=== PATIENT | female | born 1955 | race Caucasian/White ===

== ENCOUNTER 2017-07-24 09:05 | Day surgery (SDC) | payer OTHER ==
[~2017-07-24] VITALS: Ht 147.3 cm; Wt 104.7 kg
[~2017-07-24 09:05] MED LIST: ALBU90OI; ASPI81CH PO; BUTALB-ACETAMI1 EAC2 PO; CYCL10 PO; FURO20 PO; GABA300 PO; GEMF600 PO; METF500 PO; METO25ER PO; NAPR500 PO; Norco 5-325 Ta1 EACH PO; POTA10T PO; Prednisone20 MG PO; Prilosec Otc20 MG; THEO200ERC PO; Ventolin5 MG/1 ML
== END 2017-07-24 11:24 | disposition home or self-care (01) ==
LOC: ORSCSDS 09:05
PROVIDERS: Internal Medicine Gastroenterology
PROC: 0DJD8ZZ Inspection of Lower Intestinal Tract, Via Natural or Artificial Opening Endoscopic (ICD-10-PCS; principal; 2017-07-24 10:30)
PROC: 0DB88ZX Excision of Small Intestine, Via Natural or Artificial Opening Endoscopic, Diagnostic (ICD-10-PCS; principal; 2017-07-24 10:30)
PROC: 0D758ZZ Dilation of Esophagus, Via Natural or Artificial Opening Endoscopic (ICD-10-PCS; principal; 2017-07-24 10:30)
PROC: 0DB58ZX Excision of Esophagus, Via Natural or Artificial Opening Endoscopic, Diagnostic (ICD-10-PCS; principal; 2017-07-24 10:30)
DX: D50.9 Iron deficiency anemia, unspecified (principal); K21.9 Gastro-esophageal reflux disease without esophagitis; R13.14 Dysphagia, pharyngoesophageal phase; K22.2 Esophageal obstruction; K44.9 Diaphragmatic hernia without obstruction or gangrene; K57.30 Diverticulosis of large intestine without perforation or abscess without bleeding; K64.8 Other hemorrhoids; E11.9 Type 2 diabetes mellitus without complications; J45.909 Unspecified asthma, uncomplicated; Z79.899 Other long term (current) drug therapy; Z79.82 Long term (current) use of aspirin; E66.01 Morbid (severe) obesity due to excess calories; Z68.42 Body mass index [BMI] 45.0-49.9, adult
CPT/HCPCS: 82947; 88305; J7120

== ENCOUNTER 2017-09-25 13:34 | Emergency (ER) | payer OTHER ==
[~2017-09-25] VITALS: Ht 147.3 cm; Wt 102.1 kg
[2017-09-25] MEDS ORDERED: THEO300ERC PO (13:56)
[2017-09-25] MEDS ORDERED: ALBU90OI6 INH (14:10)
[2017-09-25] MEDS ORDERED: OMEPRAZOLE MAGN20 MG PO (14:13)
[2017-09-25] MEDS ORDERED: METO25 PO (14:14)
[2017-09-25] MEDS ORDERED: Klor-Con M1515 MEQ PO (14:16)
[2017-09-25] MEDS ORDERED: Cheratussin AC118 ML PO (14:30)
[2017-09-25] MEDS ORDERED: AZIT250 PO (14:30)
[2017-09-25] MEDS ORDERED: Prednisone20 MG PO (14:30)
== END 2017-09-25 14:37 | disposition home or self-care (01) ==
LOC: ER 13:34
DX: J45.909 Unspecified asthma, uncomplicated (principal); Z88.0 Allergy status to penicillin; Z91.041 Radiographic dye allergy status; Z88.1 Allergy status to other antibiotic agents; Z91.09 Other allergy status, other than to drugs and biological substances; Z88.8 Allergy status to other drugs, medicaments and biological substances; Z79.51 Long term (current) use of inhaled steroids; Z79.82 Long term (current) use of aspirin; Z79.899 Other long term (current) drug therapy
CPT/HCPCS: 71046; 94640; 99284

== ENCOUNTER 2017-09-29 15:03 | Inpatient (IN) | payer OTHER ==
[~2017-09-29] VITALS: Ht 147.3 cm; Wt 103.9 kg
[~2017-09-29 15:03] MED LIST changes: +ALBU90OI6 INH; +AZIT250 PO; +Cheratussin AC118 ML PO; +Klor-Con M1515 MEQ PO; +METO25 PO; +OMEPRAZOLE MAGN20 MG PO; +THEO300ERC PO
[2017-09-29 16:07] LABS: Alanine Aminotransfer (ALT/SGP 41 U/L (12-78); Albumin/Globulin Ratio 1.1 (0.8-1.8); Alk Phos 144 U/L (50-136); Anion Gap 10 mmol/L (6-16); Aspartate Aminotrans (AST/SGOT 19 U/L (12-37); Bilirubin, Total 0.5 mg/dL (0.1-1.0); Blood Urea Nitrogen 17 mg/dL (8-24); Bun/Creatinine Ratio 24.1 (12.0-20.0); CO2, Blood 24 mmol/L (21-32); Calcium, Blood 8.6 mg/dL (8.5-10.1); Chloride, Blood 103 mmol/L (98-108); Creatinine, Blood 0.71 mg/dL (0.40-1.00); Globulin, Blood 3.7 g/dL (2.2-4.0); Glomerular Filtration Rate >60 (60-); Glucose, Blood 201 mg/dL (70-99); Potassium, Blood 4.2 mmol/L (3.5-5.5); Sodium, Blood 137 mmol/L (136-145); Total Protein, Blood 7.7 g/dL (6.4-8.2); Troponin I <0.015 ng/mL (0.000-0.040)
[2017-09-29 16:48] LABS: BASOPHILS ABSOLUTE AUTO 0.01 K/mm3 (0.00-0.23); BASOPHILS PERCENT AUTO 0 % (0-2); EOSINOPHILS PERCENT AUTO 0 % (0-6); Hematocrit 40.6 % (33.0-51.0); Hemoglobin 13.2 g/dL (11.5-16.0); IMMATURE GRAN ABSOLUTE AUTO 0.11 K/mm3 (0.00-0.10); IMMATURE GRAN PERCENT AUTO 2 % (0-1); LYMPHOCYTES ABSOLUTE AUTO 0.52 K/mm3 (0.84-5.20); LYMPHOCYTES PERCENT AUTO 9 % (21-46); MONOCYTES ABSOLUTE AUTO 0.15 K/mm3 (0.16-1.47); MONOCYTES PERCENT AUTO 3 % (4-13); Mean Corpuscular HGB 29.4 pg (26.0-34.0); Mean Corpuscular HGB Conc 32.5 g/dL (31.5-36.5); Mean Corpuscular Volume 90 fL (80-100); Mean Platelet Volume 9.7 fL (9.1-12.4); NEUTROPHILS ABSOLUTE AUTO 5.24 K/mm3 (1.96-9.15); NEUTROPHILS PERCENT AUTO 87 % (41-73); Platelet Count 343 K/mm3 (150-400); RDW Coefficient Variation 13.2 % (11.7-14.2); RDW Standard Deviation 43.8 fL (35.1-46.3); Red Blood Cell Count 4.49 M/mm3 (3.80-5.20); White Blood Cell Count 6.03 K/mm3 (4.00-11.30)
[2017-10-01 05:02] LABS: BASOPHILS ABSOLUTE AUTO 0.03 K/mm3 (0.00-0.23); BASOPHILS PERCENT AUTO 0 % (0-2); EOSINOPHILS PERCENT AUTO 0 % (0-6); Hematocrit 39.9 % (33.0-51.0); Hemoglobin 12.9 g/dL (11.5-16.0); IMMATURE GRAN ABSOLUTE AUTO 0.33 K/mm3 (0.00-0.10); IMMATURE GRAN PERCENT AUTO 3 % (0-1); LYMPHOCYTES ABSOLUTE AUTO 1.21 K/mm3 (0.84-5.20); LYMPHOCYTES PERCENT AUTO 11 % (21-46); MONOCYTES ABSOLUTE AUTO 0.44 K/mm3 (0.16-1.47); MONOCYTES PERCENT AUTO 4 % (4-13); Mean Corpuscular HGB 29.2 pg (26.0-34.0); Mean Corpuscular HGB Conc 32.3 g/dL (31.5-36.5); Mean Corpuscular Volume 90 fL (80-100); Mean Platelet Volume 9.5 fL (9.1-12.4); NEUTROPHILS ABSOLUTE AUTO 9.19 K/mm3 (1.96-9.15); NEUTROPHILS PERCENT AUTO 82 % (41-73); Platelet Count 380 K/mm3 (150-400); RDW Coefficient Variation 13.3 % (11.7-14.2); RDW Standard Deviation 43.9 fL (35.1-46.3); Red Blood Cell Count 4.42 M/mm3 (3.80-5.20)
[2017-10-01 05:29] LABS: Alanine Aminotransfer (ALT/SGP 32 U/L (12-78); Albumin, Blood 3.8 g/dL (3.4-5.0); Albumin/Globulin Ratio 1.1 (0.8-1.8); Alk Phos 125 U/L (50-136); Anion Gap 10 mmol/L (6-16); Aspartate Aminotrans (AST/SGOT 12 U/L (12-37); Bilirubin, Total 0.4 mg/dL (0.1-1.0); Blood Urea Nitrogen 25 mg/dL (8-24); Bun/Creatinine Ratio 40.5 (12.0-20.0); CO2, Blood 26 mmol/L (21-32); Calcium, Blood 9.3 mg/dL (8.5-10.1); Chloride, Blood 101 mmol/L (98-108); Creatinine, Blood 0.62 mg/dL (0.40-1.00); Globulin, Blood 3.5 g/dL (2.2-4.0); Glomerular Filtration Rate >60 (60-); Glucose, Blood 180 mg/dL (70-99); Potassium, Blood 4.8 mmol/L (3.5-5.5); Sodium, Blood 137 mmol/L (136-145); Total Protein, Blood 7.3 g/dL (6.4-8.2)
[2017-10-01] MEDS ORDERED: AZIT250 PO (10:57)
[2017-10-01] MEDS ORDERED: Q-Tussin100 MG/5 M PO (10:59)
[2017-10-01] MEDS ORDERED: PRED20 PO (11:04)
[2017-10-01] MEDS ORDERED: LEVFLO500 PO (11:05)
== END 2017-10-01 11:45 | disposition home or self-care (01) | DRG 194 ==
LOC: ER 15:03 → MEDS 15:04 → ER 20:08 → MEDS 21:10 → ENPENDDIS 10-01 10:25 → MEDS 10-01 11:45
PROVIDERS: Emergency Medicine; Internal Medicine
DX: J18.9 Pneumonia, unspecified organism (principal); J45.901 Unspecified asthma with (acute) exacerbation; E11.42 Type 2 diabetes mellitus with diabetic polyneuropathy; I10 Essential (primary) hypertension; E78.5 Hyperlipidemia, unspecified; G89.4 Chronic pain syndrome; Z88.1 Allergy status to other antibiotic agents; Z88.0 Allergy status to penicillin; Z88.8 Allergy status to other drugs, medicaments and biological substances; Z79.84 Long term (current) use of oral hypoglycemic drugs; Z79.82 Long term (current) use of aspirin; Z79.899 Other long term (current) drug therapy
CPT/HCPCS: 36415; 71046; 80053; 82947; 83036; 83605; 84484; 85025; 87040; 93005; 93010; 94640; 94760; 96372; 96374; 96375; 96376; 99285; G0378; J0696; J1650; J1956; J2930

== ENCOUNTER 2017-12-16 07:56 | Day surgery (SDC) | payer OTHER ==
[~2017-12-16] VITALS: Ht 147.3 cm; Wt 102.6 kg
[~2017-12-16 07:56] MED LIST changes: +LEVFLO500 PO; +PRED20 PO; +Q-Tussin100 MG/5 M PO
== END 2017-12-16 10:13 | disposition home or self-care (01) ==
LOC: ORSCSDS 07:56
PROVIDERS: Internal Medicine Gastroenterology
PROC: 0DBK8ZX Excision of Ascending Colon, Via Natural or Artificial Opening Endoscopic, Diagnostic (ICD-10-PCS; principal; 2017-12-16 09:15)
PROC: 0DBH8ZX Excision of Cecum, Via Natural or Artificial Opening Endoscopic, Diagnostic (ICD-10-PCS; principal; 2017-12-16 09:15)
DX: D50.9 Iron deficiency anemia, unspecified (principal); D12.0 Benign neoplasm of cecum; D12.2 Benign neoplasm of ascending colon; K64.8 Other hemorrhoids; H40.9 Unspecified glaucoma; K21.9 Gastro-esophageal reflux disease without esophagitis; K57.30 Diverticulosis of large intestine without perforation or abscess without bleeding; E11.9 Type 2 diabetes mellitus without complications; E78.5 Hyperlipidemia, unspecified; J45.909 Unspecified asthma, uncomplicated; I10 Essential (primary) hypertension; Z79.82 Long term (current) use of aspirin; Z79.899 Other long term (current) drug therapy
CPT/HCPCS: 82947; J7120

== ENCOUNTER → 2017-12-31 | Outpatient (CLI) | payer OTHER | LOC: LAB SHORT 09:00 → LAB 09:00 | DX: E11.9 Type 2 diabetes mellitus without complications (principal) | CPT/HCPCS: 82043 ==

== ENCOUNTER 2018-01-06 12:20 | Emergency (ER) | payer OTHER ==
[~2018-01-06] VITALS: Ht 149.9 cm; Wt 103.0 kg
[2018-01-06] MEDS ORDERED: TOPI25 PO (13:25)
[2018-01-06 13:32] LABS: BASOPHILS ABSOLUTE AUTO 0.07 K/mm3 (0.00-0.23); BASOPHILS PERCENT AUTO 1 % (0-2); EOSINOPHILS ABSOLUTE AUTO 0.17 K/mm3 (0.00-0.68); EOSINOPHILS PERCENT AUTO 1 % (0-6); Hematocrit 43.2 % (33.0-51.0); Hemoglobin 14.2 g/dL (11.5-16.0); IMMATURE GRAN ABSOLUTE AUTO 0.12 K/mm3 (0.00-0.10); IMMATURE GRAN PERCENT AUTO 1 % (0-1); LYMPHOCYTES ABSOLUTE AUTO 3.02 K/mm3 (0.84-5.20); LYMPHOCYTES PERCENT AUTO 23 % (21-46); MONOCYTES PERCENT AUTO 5 % (4-13); Mean Corpuscular HGB 30.1 pg (26.0-34.0); Mean Corpuscular HGB Conc 32.9 g/dL (31.5-36.5); Mean Corpuscular Volume 92 fL (80-100); Mean Platelet Volume 9.6 fL (9.1-12.4); NEUTROPHILS ABSOLUTE AUTO 8.95 K/mm3 (1.96-9.15); NEUTROPHILS PERCENT AUTO 69 % (41-73); Platelet Count 456 K/mm3 (150-400); RDW Coefficient Variation 12.9 % (11.7-14.2); RDW Standard Deviation 43.6 fL (35.1-46.3); Red Blood Cell Count 4.72 M/mm3 (3.80-5.20); White Blood Cell Count 13.03 K/mm3 (4.00-11.30)
[2018-01-06 13:53] LABS: Alanine Aminotransfer (ALT/SGP 33 U/L (12-78); Albumin, Blood 4.1 g/dL (3.4-5.0); Alk Phos 137 U/L (50-136); Anion Gap 13 mmol/L (6-16); Aspartate Aminotrans (AST/SGOT 22 U/L (12-37); Bilirubin, Total 0.3 mg/dL (0.1-1.0); Blood Urea Nitrogen 16 mg/dL (8-24); Bun/Creatinine Ratio 25.8 (12.0-20.0); CO2, Blood 23 mmol/L (21-32); Chloride, Blood 105 mmol/L (98-108); Creatinine, Blood 0.62 mg/dL (0.40-1.00); Glomerular Filtration Rate >60 (60-); Glucose, Blood 76 mg/dL (70-99); Potassium, Blood 3.8 mmol/L (3.5-5.5); Sodium, Blood 141 mmol/L (136-145); Total Protein, Blood 8.1 g/dL (6.4-8.2); Troponin I <0.015 ng/mL (0.000-0.040)
[2018-01-06] MEDS ORDERED: Medi-Meclizine25 MG PO (14:00)
== END 2018-01-06 14:09 | disposition home or self-care (01) ==
LOC: ER 12:20
PROVIDERS: Emergency Medicine
DX: R42 Dizziness and giddiness (principal); J45.909 Unspecified asthma, uncomplicated; Z88.0 Allergy status to penicillin; Z88.8 Allergy status to other drugs, medicaments and biological substances; Z91.041 Radiographic dye allergy status; Z91.030 Bee allergy status; Z88.1 Allergy status to other antibiotic agents; Z79.84 Long term (current) use of oral hypoglycemic drugs; Z79.899 Other long term (current) drug therapy; Z79.82 Long term (current) use of aspirin
CPT/HCPCS: 36415; 80053; 81000; 84484; 85025; 93005; 93010; 96360; 99284; J7030

== ENCOUNTER 2018-08-24 14:05 | Emergency (ER) | payer OTHER ==
[~2018-08-24] VITALS: Ht 149.9 cm; Wt 104.3 kg
[~2018-08-24 14:05] MED LIST changes: +Medi-Meclizine25 MG PO; +TOPI25 PO
== END 2018-08-24 16:35 | disposition home or self-care (01) ==
LOC: ER 14:05
DX: G43.909 Migraine, unspecified, not intractable, without status migrainosus (principal); J45.909 Unspecified asthma, uncomplicated; Z79.899 Other long term (current) drug therapy; Z79.82 Long term (current) use of aspirin; Z79.84 Long term (current) use of oral hypoglycemic drugs; Z91.041 Radiographic dye allergy status; Z91.030 Bee allergy status; Z88.0 Allergy status to penicillin; Z91.048 Other nonmedicinal substance allergy status; Z88.1 Allergy status to other antibiotic agents
CPT/HCPCS: 96361; 96374; 96375; 99283-25; J0780; J1200; J1885; J7030

== ENCOUNTER → 2018-12-23 | Outpatient (CLI) | payer OTHER | END | disposition home or self-care (01) | LOC: LAB 12:15 → LAB SHORT 12:15 | DX: L72.9 Follicular cyst of the skin and subcutaneous tissue, unspecified (principal) | CPT/HCPCS: 87070; 87075; 87205 ==

== ENCOUNTER → 2020-05-09 | Outpatient (CLI) | payer OTHER ==
[~2020-05-09] MED LIST changes: +AIMOVIG AU140 MG/1 M PO; +AIMOVIG AU70 MG/1 ML SC; +Aspirin EC81 MG PO; +BUTALB-ACETAMI1 EAC5 PO; +FUROSEMIDE40 MG PO; +LIDO700A20 TOP; +METOPROLOL TART25 MG PO; +NAPROXEN500 MG PO; +NEURONTIN300 MG PO; +OMEP20ER PO; +OXYCODONE-ACET1 EAC3 PO; +PROM25 PO; +Percocet 5-3251 EACH PO; +RIZATRIPTAN10 M3 PO; +RIZATRIPTAN10 MG SL; +ROSU10TA PO; +ROSUVASTATIN CA10 MG PO; +THEO300ERA PO; +TOPI50 PO; +TROKENDI XR50 MG PO; +XARELTO10 MG PO
[2020-05-09 16:05] LABS: BASOPHILS ABSOLUTE AUTO 0.09 K/mm3 (0.00-0.23); BASOPHILS PERCENT AUTO 1 % (0-2); EOSINOPHILS ABSOLUTE AUTO 0.38 K/mm3 (0.00-0.68); EOSINOPHILS PERCENT AUTO 3 % (0-6); Hemoglobin 13.2 g/dL (11.5-16.0); IMMATURE GRAN ABSOLUTE AUTO 0.02 K/mm3 (0.00-0.10); IMMATURE GRAN PERCENT AUTO 0 % (0-1); LYMPHOCYTES ABSOLUTE AUTO 3.35 K/mm3 (0.84-5.20); LYMPHOCYTES PERCENT AUTO 29 % (21-46); MONOCYTES PERCENT AUTO 5 % (4-13); Mean Corpuscular HGB 30.2 pg (26.0-34.0); Mean Corpuscular Volume 92 fL (80-100); Mean Platelet Volume 10.5 fL (9.1-12.4); NEUTROPHILS ABSOLUTE AUTO 6.98 K/mm3 (1.96-9.15); NEUTROPHILS PERCENT AUTO 61 % (41-73); Platelet Count 282 K/mm3 (150-400); RDW Coefficient Variation 12.9 % (11.7-14.2); RDW Standard Deviation 42.7 fL (35.1-46.3); Red Blood Cell Count 4.37 M/mm3 (3.80-5.20); White Blood Cell Count 11.42 K/mm3 (4.00-11.30)
[2020-05-09 16:13] LABS: Alanine Aminotransfer (ALT/SGP 52 U/L (12-78); Albumin, Blood 3.9 g/dL (3.4-5.0); Alk Phos 174 U/L (40-126); Anion Gap 8 mmol/L (6-16); Aspartate Aminotrans (AST/SGOT 30 U/L (12-37); Bilirubin, Total 0.2 mg/dL (0.1-1.0); Blood Urea Nitrogen 20 mg/dL (8-24); Bun/Creatinine Ratio 28.6 (12.0-20.0); CO2, Blood 30 mmol/L (21-32); Calcium, Blood 9.5 mg/dL (8.5-10.1); Chloride, Blood 103 mmol/L (98-108); Globulin, Blood 3.8 g/dL (2.2-4.0); Glomerular Filtration Rate >60 (60-); Glucose, Blood 136 mg/dL (70-99); Potassium, Blood 3.6 mmol/L (3.5-5.5); Sodium, Blood 141 mmol/L (136-145); Total Protein, Blood 7.7 g/dL (6.4-8.2)
[2020-05-09 16:14] LABS: Troponin I <0.017 ng/mL (0.000-0.040)
== END | disposition home or self-care (01) ==
LOC: LAB SHORT 15:51 → LAB EV 15:51
PROVIDERS: Physician Assistant
DX: R07.9 Chest pain, unspecified (principal)
CPT/HCPCS: 80053; 83690; 84484; 85025; 85379

== ENCOUNTER 2020-05-16 16:51 | Emergency (ER) | payer OTHER ==
[~2020-05-16] VITALS: Ht 149.9 cm; Wt 98.0 kg
[~2020-05-16 16:51] MED LIST changes: -AIMOVIG AU140 MG/1 M PO; -BUTALB-ACETAMI1 EAC5 PO; -FUROSEMIDE40 MG PO; -METOPROLOL TART25 MG PO; -NAPROXEN500 MG PO; -NEURONTIN300 MG PO; -OMEP20ER PO; -OXYCODONE-ACET1 EAC3 PO; -RIZATRIPTAN10 M3 PO; -ROSUVASTATIN CA10 MG PO; -TOPI50 PO
[2020-05-16] MEDS ORDERED: NEURONTIN300 MG PO ×2 (16:56→17:01)
[2020-05-16] MEDS ORDERED: OXYCODONE-ACET1 EAC3 PO (16:56)
[2020-05-16] MEDS ORDERED: AIMOVIG AU140 MG/1 M PO (16:57)
[2020-05-16] MEDS ORDERED: METOPROLOL TART25 MG PO (16:57)
[2020-05-16] MEDS ORDERED: ROSUVASTATIN CA10 MG PO (16:58)
[2020-05-16] MEDS ORDERED: TOPI50 PO (16:58)
[2020-05-16] MEDS ORDERED: OMEP20ER PO (16:58)
[2020-05-16] MEDS ORDERED: FUROSEMIDE40 MG PO (16:58)
[2020-05-16] MEDS ORDERED: NAPROXEN500 MG PO (16:59)
[2020-05-16] MEDS ORDERED: Klor-Con M1515 MEQ PO (17:01)
[2020-05-16] MEDS ORDERED: CYCL10 PO (17:03)
[2020-05-16] MEDS ORDERED: BUTALB-ACETAMI1 EAC5 PO (17:03)
[2020-05-16] MEDS ORDERED: RIZATRIPTAN10 M3 PO (17:04)
[2020-05-16 18:15] LABS: BASOPHILS ABSOLUTE AUTO 0.07 K/mm3 (0.00-0.23); BASOPHILS PERCENT AUTO 1 % (0-2); EOSINOPHILS ABSOLUTE AUTO 0.32 K/mm3 (0.00-0.68); EOSINOPHILS PERCENT AUTO 3 % (0-6); Hematocrit 40.7 % (33.0-51.0); Hemoglobin 13.1 g/dL (11.5-16.0); IMMATURE GRAN ABSOLUTE AUTO 0.05 K/mm3 (0.00-0.10); IMMATURE GRAN PERCENT AUTO 1 % (0-1); LYMPHOCYTES ABSOLUTE AUTO 3.23 K/mm3 (0.84-5.20); LYMPHOCYTES PERCENT AUTO 32 % (21-46); MONOCYTES ABSOLUTE AUTO 0.69 K/mm3 (0.16-1.47); MONOCYTES PERCENT AUTO 7 % (4-13); Mean Corpuscular HGB 30.3 pg (26.0-34.0); Mean Corpuscular HGB Conc 32.2 g/dL (31.5-36.5); Mean Corpuscular Volume 94 fL (80-100); Mean Platelet Volume 10.3 fL (9.1-12.4); NEUTROPHILS ABSOLUTE AUTO 5.77 K/mm3 (1.96-9.15); NEUTROPHILS PERCENT AUTO 57 % (41-73); Platelet Count 285 K/mm3 (150-400); RDW Coefficient Variation 12.8 % (11.7-14.2); RDW Standard Deviation 44.1 fL (35.1-46.3); Red Blood Cell Count 4.33 M/mm3 (3.80-5.20); White Blood Cell Count 10.13 K/mm3 (4.00-11.30)
[2020-05-16 18:29] LABS: Alanine Aminotransfer (ALT/SGP 46 U/L (12-78); Albumin, Blood 3.7 g/dL (3.4-5.0); Albumin/Globulin Ratio 1.1 (0.8-1.8); Alk Phos 170 U/L (50-136); Anion Gap 5 mmol/L (6-16); Aspartate Aminotrans (AST/SGOT 29 U/L (12-37); Bilirubin, Total 0.2 mg/dL (0.1-1.0); Blood Urea Nitrogen 16 mg/dL (8-24); Bun/Creatinine Ratio 20.8 (12.0-20.0); CO2, Blood 28 mmol/L (21-32); Calcium, Blood 9.2 mg/dL (8.5-10.1); Chloride, Blood 111 mmol/L (98-108); Creatinine, Blood 0.77 mg/dL (0.40-1.00); Globulin, Blood 3.4 g/dL (2.2-4.0); Glomerular Filtration Rate >60 (60-); Glucose, Blood 116 mg/dL (70-99); Potassium, Blood 4.1 mmol/L (3.5-5.5); Sodium, Blood 144 mmol/L (136-145); Total Protein, Blood 7.1 g/dL (6.4-8.2); Troponin I <0.015 ng/mL (0.000-0.040)
== END 2020-05-16 19:50 | disposition home or self-care (01) ==
LOC: ER 16:51
PROVIDERS: Emergency Medicine
DX: S29.011A Strain of muscle and tendon of front wall of thorax, initial encounter (principal); R07.89 Other chest pain; J45.909 Unspecified asthma, uncomplicated; Z79.84 Long term (current) use of oral hypoglycemic drugs; Z79.82 Long term (current) use of aspirin; Z79.899 Other long term (current) drug therapy; X50.9XXA Other and unspecified overexertion or strenuous movements or postures, initial encounter; Y93.B9 Activity, other involving muscle strengthening exercises
CPT/HCPCS: 36415; 71045; 80053; 84484; 85025; 93005; 93010; 96374; 99285-25; J3010

== ENCOUNTER 2021-01-23 10:21 | Day surgery (SDC) | payer OTHER ==
[~2021-01-23] VITALS: Ht 149.9 cm; Wt 102.6 kg
[~2021-01-23 10:21] MED LIST changes: +AIMOVIG AU140 MG/1 M PO; +BUTALB-ACETAMI1 EAC5 PO; +FUROSEMIDE40 MG PO; +METOPROLOL TART25 MG PO; +NAPROXEN500 MG PO; +NEURONTIN300 MG PO; +OMEP20ER PO; +OXYCODONE-ACET1 EAC3 PO; +RIZATRIPTAN10 M3 PO; +ROSUVASTATIN CA10 MG PO; +TOPI50 PO
--- NOTE | 2021-01-23 10:58 | NUR ---
01/23/21 Malaika8 Lucero Fortune 1 TRY RIGHT HAND VALVE
== END 2021-01-23 11:49 | disposition home or self-care (01) ==
LOC: ORSCSDS 10:21
PROVIDERS: Internal Medicine Gastroenterology
PROC: 0DB68ZX Excision of Stomach, Via Natural or Artificial Opening Endoscopic, Diagnostic (ICD-10-PCS; principal; 2021-01-23 11:30)
PROC: 0D758ZZ Dilation of Esophagus, Via Natural or Artificial Opening Endoscopic (ICD-10-PCS; principal; 2021-01-23 11:30)
PROC: 0DB58ZX Excision of Esophagus, Via Natural or Artificial Opening Endoscopic, Diagnostic (ICD-10-PCS; principal; 2021-01-23 11:30)
DX: R13.10 Dysphagia, unspecified (principal); K21.9 Gastro-esophageal reflux disease without esophagitis; K22.2 Esophageal obstruction; K44.9 Diaphragmatic hernia without obstruction or gangrene; E11.9 Type 2 diabetes mellitus without complications; E78.5 Hyperlipidemia, unspecified; F32.9 Major depressive disorder, single episode, unspecified; I10 Essential (primary) hypertension; J45.909 Unspecified asthma, uncomplicated; E66.01 Morbid (severe) obesity due to excess calories; Z68.42 Body mass index [BMI] 45.0-49.9, adult; Z79.82 Long term (current) use of aspirin; Z79.84 Long term (current) use of oral hypoglycemic drugs; Z79.899 Other long term (current) drug therapy
CPT/HCPCS: 82947; 88305; 88342; J2704

== ENCOUNTER → 2021-08-07 | Outpatient (CLI) | payer OTHER | END | disposition home or self-care (01) | LOC: LAB SHORT 08:56 | DX: E53.8 Deficiency of other specified B group vitamins (principal) | CPT/HCPCS: 82607; 82746 ==

== ENCOUNTER → 2021-10-15 | Outpatient (CLI) | payer OTHER ==
[2021-10-16 16:10] LABS: HPV 16 Negative (Negative); HPV 18 Negative (Negative); HPV OTHER HR TYPES Negative (Negative)
== END | disposition home or self-care (01) ==
LOC: LAB SHORT 10:05 → LAB 10:05
PROVIDERS: Family Medicine
DX: Z01.419 Encounter for gynecological examination (general) (routine) without abnormal findings (principal)
CPT/HCPCS: 87624; G0123

== ENCOUNTER 2022-03-11 09:58 | Day surgery (SDC) | payer OTHER ==
[~2022-03-11] VITALS: Ht 147.3 cm; Wt 99.5 kg
--- NOTE | 2022-03-11 11:30 | NUR ---
03/11/22 1130 Tiffany Jarquin PT TESTED FOR BETATDINE ALLERGY ON THE LEFT FOREARM. NO REDNESS NOTED. PT COMPLAINS OF BURNING SENSATION. BETADINE WIPED OFF. NO REDNESS.
== END 2022-03-11 13:31 | disposition home or self-care (01) ==
LOC: ORSCSDS 09:58
PROVIDERS: Ophthalmology
PROC: 08RJ3JZ Replacement of Right Lens with Synthetic Substitute, Percutaneous Approach (ICD-10-PCS; principal; 2022-03-11 11:30)
DX: H25.11 Age-related nuclear cataract, right eye (principal); E11.9 Type 2 diabetes mellitus without complications; K21.9 Gastro-esophageal reflux disease without esophagitis; E78.5 Hyperlipidemia, unspecified; H40.9 Unspecified glaucoma; I10 Essential (primary) hypertension; E66.9 Obesity, unspecified; Z68.42 Body mass index [BMI] 45.0-49.9, adult; Z79.82 Long term (current) use of aspirin; Z79.84 Long term (current) use of oral hypoglycemic drugs; Z79.51 Long term (current) use of inhaled steroids; Z79.899 Other long term (current) drug therapy
CPT/HCPCS: 82947; J2001; J2250; J3010; J3301; J7040; V2632

== ENCOUNTER 2023-07-15 10:21 | Observation (INO) | payer OTHER ==
[~2023-07-15] VITALS: Ht 149.9 cm; Wt 88.3 kg
[2023-07-15] MEDS ORDERED: DRAMAMINE25 M3 PO (11:09)
[2023-07-15] MEDS ORDERED: THEOPHYLLINE E100 MG PO (11:10)
[2023-07-15 11:54] LABS: Albumin, Blood 3.7 g/dL (3.4-5.0); Albumin/Globulin Ratio 0.9 (0.8-1.8); Bilirubin, Total 0.4 mg/dL (0.1-1.0); Bun/Creatinine Ratio 22.5 (12.0-20.0); Calcium, Blood 8.7 mg/dL (8.5-10.1); Creatinine, Blood 0.58 mg/dL (0.40-1.00); Globulin, Blood 3.9 g/dL (2.2-4.0); Potassium, Blood 6.2 mmol/L (3.5-5.5); Total Protein, Blood 7.6 g/dL (6.4-8.2)
[2023-07-15 12:01] LABS: BASOPHILS ABSOLUTE AUTO 0.06 K/mm3 (0.00-0.23); BASOPHILS PERCENT AUTO 1 % (0-2); EOSINOPHILS ABSOLUTE AUTO 0.13 K/mm3 (0.00-0.68); EOSINOPHILS PERCENT AUTO 2 % (0-6); Hematocrit 43.7 % (33.0-51.0); Hemoglobin 14.7 g/dL (11.5-16.0); IMMATURE GRAN ABSOLUTE AUTO 0.07 K/mm3 (0.00-0.10); IMMATURE GRAN PERCENT AUTO 1 % (0-1); LYMPHOCYTES ABSOLUTE AUTO 2.27 K/mm3 (0.84-5.20); LYMPHOCYTES PERCENT AUTO 25 % (21-46); MONOCYTES ABSOLUTE AUTO 0.48 K/mm3 (0.16-1.47); MONOCYTES PERCENT AUTO 5 % (4-13); Mean Corpuscular HGB 31.4 pg (26.0-34.0); Mean Corpuscular HGB Conc 33.6 g/dL (31.5-36.5); Mean Corpuscular Volume 93 fL (80-100); NEUTROPHILS ABSOLUTE AUTO 5.91 K/mm3 (1.96-9.15); NEUTROPHILS PERCENT AUTO 66 % (41-73); RDW Coefficient Variation 13.2 % (11.7-14.2); RDW Standard Deviation 45.3 fL (35.1-46.3); Red Blood Cell Count 4.68 M/mm3 (3.80-5.20); White Blood Cell Count 8.92 K/mm3 (4.00-11.30)
[2023-07-15 12:20] LABS: Calcium, Ionized (POC) 1.24 mmol/L (1.10-1.46); Chloride (POC) 107 mmol/L (98-108); Creatinine (POC) 0.6 mg/dL (0.6-1.0); Glucose (ISTAT POC) 100 mg/dL (70-99); Hemoglobin (POC) 14.3 g/dL (12.0-16.0); Potassium (POC) 4.5 mmol/L (3.5-5.5); Sodium (POC) 142 mmol/L (135-148); Total CO2 (POC) 26 mmol/L (21-32)
[2023-07-15 13:10] LABS: Calcium, Ionized (POC) 1.18 mmol/L (1.10-1.46); Chloride (POC) 110 mmol/L (98-108); Creatinine (POC) 0.6 mg/dL (0.6-1.0); Glucose (ISTAT POC) 101 mg/dL (70-99); Hemoglobin (POC) 13.3 g/dL (12.0-16.0); Potassium (POC) 4.7 mmol/L (3.5-5.5); Sodium (POC) 142 mmol/L (135-148); Total CO2 (POC) 21 mmol/L (21-32)
[2023-07-15 13:17] LABS: Mean Platelet Volume 10.3 fL (9.1-12.4); Platelet Count 243 K/mm3 (150-400)
[2023-07-15 14:39] LABS: Source, Urine Clean Catch
[2023-07-15 14:45] LABS: Appearance, Urine Clear (Clear); Bilirubin, Urine Neg (Neg); Blood, Urine Neg (Neg); Color, Urine Yellow (P-Yellow); Glucose Qualitative, Urine Neg (Neg); Ketones, Urine Neg (Neg); Leukocyte Esterase, Urine 1+ (Neg); Nitrite, Urine Neg (Neg); Protein, Urine Neg (Neg); Urobilinogen, Urine NORM (Normal)
[2023-07-15 14:52] LABS: Bacteria Rare /hpf; Red Blood Cells, Urine Not Seen /hpf (0-2); Squamous Epithelial Cells Few /hpf (Few); White Blood Cells, Urine 0-2 /hpf (0-5)
[2023-07-15] MEDS ORDERED: ALEN70 PO (16:37)
[2023-07-15] MEDS ORDERED: LINZESS145 MCG PO (16:37)
[2023-07-15] MEDS ORDERED: CYCL10 PO (16:38)
[2023-07-15] MEDS ORDERED: POTA10T PO (19:10)
[2023-07-15] MEDS ORDERED: RIZATRIPTAN10 M3 PO (19:12)
[2023-07-15] MEDS ORDERED: FAMO40 PO (19:14)
[2023-07-15] MEDS ORDERED: OZEMPIC1 MG/0.72 SC (19:18)
[2023-07-15 19:26] VITALS: BP 126/76
--- NOTE | 2023-07-15 21:59 | NUR ---
PT ARRIVED TO THE FLOOR AT 1905. PT PLEASANT AND COOPERATIVE WITH CARE PROVIDED. PT A&O x4, VSS, AFEBRILE. CBG CHECK AT 2100 WAS 83. PT ADMITTED TO THE UNIT FOR SYNCOPE. ATTENDING PHYSICIAN NOTIFIED OF A POTASSIUM LEVEL WAS 6.2 AT 1055 EARLIER TODAY. REPEAT LABS FOR POTASSIUM. SKIN ASSESSMENT COMPLETED, NO SKIN ISSUES NOTED. 2200: PT DENIES ANY DIZZINESS/LIGHTHEADEDNESS. PT HAS A PUREWICK IN PLACE TO HELP PT SLEEP, AND PREVENT FALLS FROM OCCURRING. PT ABLE TO MAKE NEEDS KNOWN, CALL LIGHT WITHIN REACH, WCTM.
[2023-07-16 04:33] VITALS: BP 109/64
[2023-07-16 04:58] LABS: BASOPHILS ABSOLUTE AUTO 0.06 K/mm3 (0.00-0.23); BASOPHILS PERCENT AUTO 1 % (0-2); EOSINOPHILS ABSOLUTE AUTO 0.15 K/mm3 (0.00-0.68); EOSINOPHILS PERCENT AUTO 2 % (0-6); Hematocrit 38.5 % (33.0-51.0); Hemoglobin 12.6 g/dL (11.5-16.0); IMMATURE GRAN ABSOLUTE AUTO 0.02 K/mm3 (0.00-0.10); IMMATURE GRAN PERCENT AUTO 0 % (0-1); LYMPHOCYTES ABSOLUTE AUTO 2.89 K/mm3 (0.84-5.20); LYMPHOCYTES PERCENT AUTO 35 % (21-46); MONOCYTES ABSOLUTE AUTO 0.47 K/mm3 (0.16-1.47); MONOCYTES PERCENT AUTO 6 % (4-13); Mean Corpuscular HGB Conc 32.7 g/dL (31.5-36.5); Mean Corpuscular Volume 95 fL (80-100); Mean Platelet Volume 9.7 fL (9.1-12.4); NEUTROPHILS ABSOLUTE AUTO 4.66 K/mm3 (1.96-9.15); NEUTROPHILS PERCENT AUTO 57 % (41-73); Platelet Count 260 K/mm3 (150-400); RDW Coefficient Variation 13.3 % (11.7-14.2); RDW Standard Deviation 46.5 fL (35.1-46.3); Red Blood Cell Count 4.06 M/mm3 (3.80-5.20); White Blood Cell Count 8.25 K/mm3 (4.00-11.30)
[2023-07-16 05:24] LABS: Albumin, Blood 3.1 g/dL (3.4-5.0); Albumin/Globulin Ratio 1.1 (0.8-1.8); Bilirubin, Total 0.2 mg/dL (0.1-1.0); Bun/Creatinine Ratio 18.3 (12.0-20.0); Calcium, Blood 8.5 mg/dL (8.5-10.1); Creatinine, Blood 0.6 mg/dL (0.40-1.00); Globulin, Blood 2.9 g/dL (2.2-4.0); Potassium, Blood 3.6 mmol/L (3.5-5.5)
[2023-07-16 08:02] VITALS: BP 122/56
[2023-07-16 15:35] VITALS: BP 114/58
--- NOTE | 2023-07-16 16:23 | NUR ---
SHIFT/DISCHARGE SUMMARY Pt remains A&Ox3 this shift. VSS. OOB and ambulating with SBA. Independent with toileting. Resp even nonlabored. Skin warm dry intact. Tolerating diet. All discharge instructions reviewed with return verbal understanding. Pt to lobby via [facility]. Family awaiting to drive pt home.
== END 2023-07-16 16:28 | disposition home or self-care (01) ==
LOC: ER 10:21 → MEDS 10:22
PROVIDERS: Emergency Medicine; ADMIT Internal Medicine
DX: R55 Syncope and collapse (principal); J45.909 Unspecified asthma, uncomplicated; G47.33 Obstructive sleep apnea (adult) (pediatric); G89.29 Other chronic pain; K21.9 Gastro-esophageal reflux disease without esophagitis; E78.5 Hyperlipidemia, unspecified; G43.709 Chronic migraine without aura, not intractable, without status migrainosus; E11.9 Type 2 diabetes mellitus without complications; Z88.1 Allergy status to other antibiotic agents; Z88.0 Allergy status to penicillin; Z88.8 Allergy status to other drugs, medicaments and biological substances; Z79.84 Long term (current) use of oral hypoglycemic drugs; Z79.899 Other long term (current) drug therapy
CPT/HCPCS: 36415; 70450; 80047; 80053; 81001; 82947; 83880; 84132; 84484; 85014; 85025; 93005; 93010; 96361; 96372; 96374; 97116; 97161; 97530; 99285-25; A9270; G0378; J1650; J2405; J2765; J7030

== ENCOUNTER → 2025-04-07 | Outpatient (CLI) | payer OTHER ==
[~2025-04-07] MED LIST changes: +ALEN70 PO; +DRAMAMINE25 M3 PO; +FAMO40 PO; +LINZESS145 MCG PO; +OZEMPIC1 MG/0.72 SC; +THEOPHYLLINE E100 MG PO
[2025-04-07 18:29] LABS: U Amphetamine Screen Not Detected; U Barbituate Screen DETECTED; U Benzodiazapine Screen Not Detected; U Buprenorphine Screen Not Detected; U Cannabinoids Screen Not Detected; U Cocaine Screen Not Detected; U Methadone Screen Not Detected; U Methamphetamine Screen Not Detected; U Opiates Screen Not Detected; U Oxycodone Screen Not Detected; U Phencyclidine Screen Not Detected
[2025-04-12 12:47] LABS: BUTALBITAL, URN, QUANT 1548 ng/mL; PENTOBARBITAL, URN, QUANT <50 ng/mL; PHENOBARBITAL, URN, QUANT <50 ng/mL
[2025-04-14 20:12] LABS: AMITRIPTYLINE, QUANT, URN <100 ng/mL; CLOMIPRAMINE QUANT, URN <200 ng/mL; DESIPRAMINE QUANT, URN <100 ng/mL; DOXEPIN QUANT, URN <100 ng/mL; IMIPRAMINE QUANT, URN <100 ng/mL; NORCLOMIPRAMINE QUANT, URN <200 ng/mL; NORDOXEPIN QUANT, URN <100 ng/mL; NORTRIPTYLINE, QUANT, URN <100 ng/mL; PROTRIPTYLINE QUANT, URN <100 ng/mL
== END ==
LOC: LAB SHORT 17:35 → LAB 17:35
PROVIDERS: Internal Medicine
DX: Z51.81 Encounter for therapeutic drug level monitoring (principal); Z79.899 Other long term (current) drug therapy
CPT/HCPCS: G0480